=== PATIENT | male | born 1950 | race Caucasian/White ===

== ENCOUNTER → 2020-09-14 | Outpatient (CLI) | payer MEDICARE | LOC: RT 10:05 | DX: A63.0 Anogenital (venereal) warts (principal); I51.7 Cardiomegaly; R94.31 Abnormal electrocardiogram [ECG] [EKG] | CPT/HCPCS: 93005 ==

== ENCOUNTER → 2022-01-18 | Outpatient (CLI) | payer MEDICARE, OTHER | LOC: RAD 09:50 | DX: R06.02 Shortness of breath (principal); R05.9 Cough, unspecified; R91.8 Other nonspecific abnormal finding of lung field | CPT/HCPCS: 71046 ==